=== PATIENT | female | born 1990 | race Caucasian/White ===

== ENCOUNTER 2020-09-11 17:20 | Emergency (ER) | payer MEDICAID ==
[~2020-09-11] VITALS: Ht 170.2 cm; Wt 71.3 kg
[2020-09-11 17:36] VITALS: BP 114/75
[2020-09-11] MEDS ORDERED: LORA1T1237 PO (18:36)
[2020-09-11] MEDS ORDERED: LEVO0.1T18 PO (18:36)
[2020-09-11] MEDS ORDERED: IBUP-2213 PO (18:36)
[2020-09-11] MEDS ORDERED: PROM118S5 PO (18:36)
--- NOTE | 2020-09-11 19:10 | NUR ---
CALLED PATIENT FOR DISCHARGE IN LOBBY AND OUTSIDE. NO ANSWER.
--- NOTE | 2020-09-11 19:30 | NUR ---
PATIENT LEFT WITHOUT DISCHARGE PAPERWORK.
== END 2020-09-11 19:30 | disposition home or self-care (01) ==
LOC: MED 17:20
DX: R06.02 Shortness of breath (principal); H92.09 Otalgia, unspecified ear; Z53.21 Procedure and treatment not carried out due to patient leaving prior to being seen by health care provider
CPT/HCPCS: 99281

== ENCOUNTER 2020-11-23 20:23 | Emergency (ER) | payer MEDICAID ==
[~2020-11-23] VITALS: Ht 162.6 cm; Wt 61.7 kg
[~2020-11-23 20:23] MED LIST: IBUP-2213 PO; LEVO0.1T18 PO; LORA1T1237 PO; PROM118S5 PO
[2020-11-23 20:32] VITALS: BP 116/71
--- NOTE | 2020-11-23 20:32 | NUR ---
TO MICHEAL BRYANT
--- NOTE | 2020-11-23 20:48 | NUR ---
SEEN AND EXAMINED BY TOBI
--- NOTE | 2020-11-23 20:58 | NUR ---
ERMD AT BEDSIDE FOR PT CARE.
--- NOTE | 2020-11-23 21:00 | NUR ---
PT ASSESSMENT COMPLETED BY TOBI. NO NURSING INTERVENTIONS REQUIRED AT THIS TIME.
[2020-11-23] MEDS ORDERED: SULFAMETH/TRIMETH DS 800/160MG 1 TAB PO ONE (21:10)
[2020-11-23] MEDS ORDERED: cephALEXin 500 MG CAP PO ONE (21:10)
[2020-11-23] MEDS ORDERED: SULF-59 PO (21:11)
[2020-11-23] MEDS ORDERED: CEPH-588 PO (21:11)
[2020-11-23 21:20] VITALS: BP 116/71
--- NOTE | 2020-11-23 21:20 | NUR ---
Patient discharged with v/s stable. Written and verbal after care instructions given and explained. Patient alert, oriented and verbalized understanding of instructions. Ambulatory with steady gait. All questions addressed prior to discharge. ID band removed. Patient advised to follow up with PMD. Rx of KEFLEX, BACTRIM given. Patient educated on indication of medication including possible reaction and side effects. Opportunity to ask questions provided and answered.
== END 2020-11-23 21:20 | disposition home or self-care (01) ==
LOC: MED 20:23
DX: M79.651 Pain in right thigh (principal); L30.9 Dermatitis, unspecified; E03.9 Hypothyroidism, unspecified; Z79.899 Other long term (current) drug therapy
CPT/HCPCS: 99284